=== PATIENT | female | born 1970 | race Caucasian/White ===

== ENCOUNTER → 2018-05-26 | Outpatient (CLI) | payer OTHER | LOC: CARD 12:16 | PROVIDERS: ATTEND Family Medicine | DX: R01.1 Cardiac murmur, unspecified (principal); I07.1 Rheumatic tricuspid insufficiency | CPT/HCPCS: 93306 ==

== ENCOUNTER → 2018-08-06 | Outpatient (CLI) | payer OTHER ==
--- NOTE | 2018-08-06 12:34 | Diagnostic Imaging Report ---
PROCEDURE: MR imaging cervical spine without contrast. TECHNIQUE: Multiplanar, multisequence MR imaging of the cervical spine was performed without contrast. INDICATION: Neck pain which radiates to the right upper extremity with paresthesia. FINDINGS: There is reversal of cervical lordosis. Vertebral body heights are maintained. There is diffuse desiccation of cervical discs. No focal herniated nucleus pulposus is identified. There is mild rightward bulging of the C3-C4 disc resulting in mild right neuroforaminal stenosis. No other significant stenosis is identified. There is normal signal intensity throughout the cervical spinal cord. There is no bone marrow edema to indicate fracture. IMPRESSION: 1. Reversal of cervical lordosis may be secondary to muscle spasm, although clinical correlation is recommended. 2. There is no acute abnormality identified. Rightward protrusion of the C3-C4 disc results in mild right neuroforaminal stenosis. Dictated by: Dictated on workstation # [id number]
== END ==
LOC: RAD 10:54
PROVIDERS: ATTEND Family Medicine
DX: M50.11 Cervical disc disorder with radiculopathy, high cervical region (principal); M99.71 Connective tissue and disc stenosis of intervertebral foramina of cervical region
CPT/HCPCS: 72141

== ENCOUNTER → 2019-01-15 | Outpatient (CLI) | payer OTHER | LOC: CARD 09:39 | PROVIDERS: ATTEND Family Medicine | DX: R07.9 Chest pain, unspecified (principal) | CPT/HCPCS: 93017 ==

== ENCOUNTER → 2019-02-25 | Outpatient (CLI) | payer OTHER ==
[~2019-02-25] VITALS: Ht 157.5 cm; Wt 84.4 kg
[~2019-02-25] MED LIST: CATHETER FLUSH 10 ML SYR IV PRN; REGADENOSON 0.4 MG/5 ML SYR (LEXISCAN) IV ONE
[2019-02-25 13:39] VITALS: BP 140/81
[2019-02-25 13:40] VITALS: BP 143/91
--- NOTE | 2019-02-25 15:56 | STRESS TEST ---
DATE OF SERVICE: 02/25/2019 LEXISCAN MYOVIEW STRESS TEST REPORT REFERRING PHYSICIAN: Dr. Schmidt, [facility]. Baseline heart rate is 62. Baseline blood pressure 140/80. Baseline EKG is sinus rhythm with nondiagnostic changes. In summary, the patient was injected with 10.37 mCi of technetium-99 Myoview and the resting images were obtained. Then, the patient received 0.4 mg of Lexiscan followed by 29.9 mCi of technetium-99 Myoview. Throughout the test, there were no EKG changes. The resting and stress images were reviewed and compared in the short axis, horizontal long axis, and vertical long axis views. Review of the images showed breast attenuation affecting the quality of the images. There is mild decreased uptake involving the anteroapical segment with subtle reversibility, no significant ischemia was noted. SSS is 4, SDS is 4, TID value 1.02. On the gated images, the left ventricle appeared to be normal size with normal contractility. Calculated ejection fraction 78%. CONCLUSION: 1. The patient tolerated Lexiscan well. 2. Breast attenuation affecting the quality of the images with mild decreased uptake at the anteroapical segment with mild reversibility, no significant ischemia or infarction on SPECT images. 3. Normal left ventricular size with normal contractility. Calculated ejection fraction 78%. Job ID: [id number] DocumentID: [id number] Dictated Date: 02/25/2019 15:33:51 Data Migration Consultant Date: 02/25/2019 15:55:44 Dictated By: STEPHANIE MENDEZ MD
== END ==
LOC: CARD 11:36
PROVIDERS: ATTEND Internal Medicine Cardiovascular Disease
DX: R94.39 Abnormal result of other cardiovascular function study (principal); I11.9 Hypertensive heart disease without heart failure; E03.9 Hypothyroidism, unspecified
CPT/HCPCS: 78452; 93017

== ENCOUNTER → 2019-04-30 | Outpatient (CLI) | payer OTHER | LOC: CARD 10:26 | PROVIDERS: ATTEND Internal Medicine Cardiovascular Disease | DX: E03.9 Hypothyroidism, unspecified (principal); I10 Essential (primary) hypertension; R94.39 Abnormal result of other cardiovascular function study | CPT/HCPCS: 93306 ==

== ENCOUNTER 2019-05-13 07:18 | Day surgery (SDC) | payer OTHER ==
[~2019-05-13] VITALS: Ht 157.5 cm; Wt 83.9 kg
[2019-05-13] VITALS (10 sets, daily range): BP systolic 106–174; BP diastolic 71–90
[2019-05-13] MEDS ORDERED: HEParin (CATH LAB) 2,000 ML IV ONE (07:22)
[2019-05-13] MEDS ORDERED: NS IV 1000 ML 1,000 ML ONE (07:22)
[2019-05-13] MEDS ORDERED: LIDOCAINE 1% INJ 20 ML 20 ML VIAL ONE (07:22)
[2019-05-13] MEDS ORDERED: NS IV 1000 ML 1,000 ML IV SCH ×2 (07:25→09:53)
[2019-05-13 07:51] LABS: HEMOGLOBIN 13.1 G/DL (11.5-16.0); MEAN PLATELET VOLUME 8.2 FL (7.4-10.4); RED CELL DISTRIBUTION WIDTH 12.9 % (10.0-14.5); WHITE BLOOD COUNT 6.6 10^3/uL (4.3-11.0)
[2019-05-13] MEDS ORDERED: CYAN-41 PO (08:03)
[2019-05-13] MEDS ORDERED: TIZA4TAB4 PO ×2 (08:03)
[2019-05-13] MEDS ORDERED: TRAZ-190 PO (08:03)
[2019-05-13] MEDS ORDERED: CARI1.5C PO (08:03)
[2019-05-13] MEDS ORDERED: OXCA600T10 PO (08:03)
[2019-05-13] MEDS ORDERED: ESTR1TAB27 PO (08:03)
[2019-05-13] MEDS ORDERED: CITA40TA19 PO (08:03)
[2019-05-13] MEDS ORDERED: MONT10TA21 PO (08:03)
[2019-05-13] MEDS ORDERED: GBPN600T PO (08:03)
[2019-05-13] MEDS ORDERED: LEVO150T PO (08:03)
[2019-05-13] MEDS ORDERED: PRAZ5CAP2 PO (08:03)
[2019-05-13] MEDS ORDERED: HYDR25TA4 PO (08:03)
[2019-05-13] MEDS ORDERED: CHOL200059 PO (08:03)
[2019-05-13 08:06] LABS: INR 0.9 (0.8-1.4)
--- NOTE | 2019-05-13 08:07 | Diagnostic Imaging Report ---
Indication: Preop for coronary angiography, coronary artery disease. Frontal chest obtained at 740 hours a.m. Heart and mediastinal silhouette are normal in appearance. The lungs are clear. There is no pneumothorax or pleural fluid. Impression: Negative chest. Dictated by: Dictated on workstation # [id number]
[2019-05-13] MEDS ORDERED: ACET325T49 PO (08:08)
[2019-05-13] MEDS ORDERED: ASPI-992 PO (08:08)
[2019-05-13 08:11] LABS: ALANINE AMINOTRANSFERASE 17 U/L (0-55); ALBUMIN 4.1 GM/DL (3.2-4.5); ALKALINE PHOSPHATASE 98 U/L (40-136); BILIRUBIN,TOTAL 0.4 MG/DL (0.1-1.0); BUN/CREATININE RATIO 9; CALCIUM 9.1 MG/DL (8.5-10.1); CARBON DIOXIDE 24 MMOL/L (21-32); CHLORIDE 105 MMOL/L (98-107); CHOLESTEROL 231 MG/DL (< 200); CREATININE SERUM 0.74 MG/DL (0.60-1.30); GFR ESTIMATED > 60; GLUCOSE 103 MG/DL (70-105); HDL CHOLESTEROL 67 MG/DL (40-60); POTASSIUM 4.1 MMOL/L (3.6-5.0); SODIUM 138 MMOL/L (135-145); TOTAL PROTEIN 7.3 GM/DL (6.4-8.2); TRIGLYCERIDES 136 MG/DL (<150); VLDL CHOLESTEROL 27 MG/DL (5-40)
--- NOTE | 2019-05-13 08:12 | NUR ---
SPOKE WITH PT (SHE BROUGHT IN HER BOTTLES) TO COMPLETE THE MED REC. PT WAS ABLE TO VERIFY ALL THE MEDS SHE IS CURRENTLY TAKING AND WAS ABLE TO TELL ME HOW SHE TAKES THEM ITAALCIDES IS A SAMPLE [facility] TIZANIDINE 4MG: PT TAKE 1/4 TAB (1MG) IN AM AND AT NOON, THEN TAKES 1 TAB (4MG) AT BEDTIME GABAPENTIN 600MG: PT TAKES 1& 1/2 TABS (900MG) BID OTC MEDS: VITAMIN D3 2000UI: 3 CAPS AT NOON VITAMIN B12 1,000: 1 TAB AT NOON EXCEDRIN: 2 TABS Q 8 H PRN ACETAMINOPHEN 325M TABS Q 8 H PRN
[2019-05-13] MEDS ORDERED: fentaNYL INJECTION 100 MCG/2 ML AMP ONE (08:54)
[2019-05-13] MEDS ORDERED: MIDAZOLAM 5 MG/5 ML (VERSED) VIAL ONE (08:54)
[2019-05-13] MEDS ORDERED: NITRO DRIP 25000 MCG/D5W 250 ML IV ONE (08:55)
[2019-05-13] MEDS ORDERED: VERAPAMIL 5 MG/2 ML (CALAN) VIAL IV ONE (08:55)
[2019-05-13] MEDS ORDERED: HEParin 1000 UNIT/ML (10ML VIAL) FOR BOLUS ONE (08:55)
--- NOTE | 2019-05-13 09:22 | Cardiac Procedure Note-CS/ASA ---
Pre-Procedure Note Pre-Op Procedure Note H&P Reviewed The H&P was reviewed, patient examined and no changes noted. Date H&P Reviewed: May 13, 2019 Time H&P Reviewed: 09:21 Conscious Sedation Pre-Proced Time 09:21 ASA Score 3 For ASA 3 and 4: Consider anesthesia and medical clearance. Also, for patients with a history of failed moderate sedation consider anesthesia. Airway Lungs Heart ASA score ASA 1: a normal healthy patient ASA 2: a patient with a mild systemic disease (mid diabetes, controlled hypertension, obesity X ASA 3: a patient with a severe systemic disease that limits activity (angina, COPD, prior Myocardial infarction) ASA 4: a patient with an incapacitating disease that is a constant threat to life (CHF, renal failure) ASA 5: a moribund patient not expected to survive 24 hrs. (ruptured aneurysm) ASA 6: a declared brain- patient whose organs are being harvested. For emergent operations, add the letter E after the classification Mallampati Classification Grade 3 Sedation Plan Analgesia, Amnesia, Plan communicated to team members, Discussed options with patient/fam, Discussed risks with patient/fam The patient is an appropriate candidate to undergo the planned procedure, sedation, and anesthesia. The patient immediately re-assessed prior to indication. STEPHANIE MENDEZ MD May 13, 2019 09:22
--- NOTE | 2019-05-13 09:53 | Cardiac Cath Report ---
Cardiac Cath Report Physician (s)/Slice Plug Cutter Operator Helper (s) Physician STEPHANIE MENDEZ MD Pre-Procedure Diagnosis Pre-Procedure Diagnosis: chest pain, coronary artery disease Post-Procedure Note Procedure Start Date: May 13, 2019 Name of Procedure: coronary angiogram Aortic arch angiogram Findings/Procedure Note PROCEDURE NOTE: 48 years old lady with history of hypertension, has been having recurrent chest pain, had abnormal stress test, scheduled for cardiac catheterization possible PTCA. After explaining the procedure to the patient, all pros and cons were explained, all questions were answered. The patient signed the consent and then she was placed on the cardiac catheterization laboratory. Groin was prepped SL fashion local anesthesia was used. Sheath placed in the Right radial artery, [place] catheter was used, I was unable to cross the valve, did not get adequate pressure after crossing. Pullback without pressure measurement. Intubated the left coronary angiogram was done, then turned and intubated the right coronary artery and angiogram was done. Attempted multiple times to cross the valve without success subsequent apple the catheter back to the arch and did aortic arch angiogram.. At the end of the procedure the sheath was removed. vascular band was used FINDINGS: Hemodynamics LV no LV pressure measurement Aorta 106/71 mean of 77 ANATOMY: Left Main is free of obstructive disease Left Anterior Descending is tortuous with mild disease nonobstructive disease Left Circumflex is nondominant artery with nonobstructive disease Right Coronory Artery is dominant artery with no obstructive disease Aortic arteriogram showed normal aortic arch, no dissection or aneurysm, normal origin of the right innominate artery, left carotid and left subclavian artery. CONCLUSION: 1. Dominant right carotid system with slightly tortuous LAD with no significant obstructive disease in the coronary system 2. Normal aortic arch and great vessels of the neck DISCUSSION AND RECOMMENDATION: medical therapy is recommended no intervention is needed Anesthesia Type: Conscious Sedation Estimated blood loss (mL): 5 ml Contrast Amount: 35 ml Total Radiation Dose: 202 mGy Post-Procedure Diagnosis Post-operative diagnosis: Chest pain Coronary artery disease Hypertension Hyperlipidemia STEPHANIE MENDEZ MD May 13, 2019 09:53
[2019-05-13] MEDS ORDERED: ATOR10TA PO (09:55)
--- NOTE | 2019-05-13 09:56 | Discharge Inst-Post CATH ---
Discharge Inst-CATH/EP Problems Reviewed?: Yes Post Cardiac Cath/EP D/C Inst Follow Up/Plan Appointment with Dr. Montanez's office in 2-4 weeks <b>CARDIAC CATH/EP PROCEDURE DISCHARGE INSTRUCTIONS</b> ACTIVITY * Go Home directly and rest. * Limit activity of the leg (or wrist if it was used) for 7 days including aerobics, swimming, jogging, bicycling, etc. * Restrict stair-climbing for 7 days if possible, if not, climb up with your non-cath leg, then bring together on the same step. * Avoid lifting, pushing, pulling or excessive movement of the affected extremity for 7 days. * Customary sexual activity may be resumed after 2 days-use caution not to use a position that strains or causes pain to the affected extremity. * No driving for 24 hours. * NO SMOKING. * Avoid straining for bowel movements for 7 days. * Gentle walking on level ground is allowed. * Returning to work will depend on the type of procedure and the results. Your doctor will discuss this with you. CALL YOUR DOCTOR FOR ANY OF THE FOLLOWING: *If bleeding from the puncture site occurs- Apply gentle pressure to site with clean cloth and call your doctor or EMS. * If a knot or lump forms under the skin, increases in size, or causes pain. * If bruising appears to be worsening or moving further down your leg instead of disappearing. * Temperature above 101 F. CARE OF YOUR GROIN INCISION; * Bruising or purple discoloration of the skin near the puncture site is common. * You may shower only, no bathtub bathing for 5 days. Be careful to avoid slipping as your leg may feel stiff. * If a closure device was used on your femoral artery, please see the attached guide regarding care of the device and your leg. * Leave dressing on FOR 24 hours. CARE OF YOUR WRIST INCISION; * Bruising or purple discoloration of the skin near the puncture site is common. * You may shower. * DO NOT submerge wrist. * Leave dressing on FOR 24 hours. STEPHANIE MONTANEZ MD May 13, 2019 09:56
--- NOTE | 2019-05-13 12:25 | NUR ---
ONLY 12CC REMOVED FROM VASC BAND
== END 2019-05-13 12:50 | disposition home or self-care (01) ==
LOC: CATH 07:18 → SDC 10:09 → CATH 12:50
PROVIDERS: ATTEND Internal Medicine Cardiovascular Disease
DX: R07.9 Chest pain, unspecified (principal); I25.10 Atherosclerotic heart disease of native coronary artery without angina pectoris; I11.9 Hypertensive heart disease without heart failure; I65.23 Occlusion and stenosis of bilateral carotid arteries; E78.5 Hyperlipidemia, unspecified; F31.9 Bipolar disorder, unspecified; E03.9 Hypothyroidism, unspecified; S19.9XXA Unspecified injury of neck, initial encounter; Z79.899 Other long term (current) drug therapy; Z91.040 Latex allergy status; Z87.891 Personal history of nicotine dependence; Z83.3 Family history of diabetes mellitus; Z82.49 Family history of ischemic heart disease and other diseases of the circulatory system; Z82.3 Family history of stroke
CPT/HCPCS: 36221; 36415; 71045; 80053; 80061; 85027; 85610; 85730; 87081; 93454

== ENCOUNTER → 2020-09-27 | Outpatient (CLI) | payer OTHER, MEDICAID ==
[~2020-09-27] MED LIST changes: +ACET325T49 PO; +ASPI-992 PO; +ATOR10TA PO; +CARI1.5C PO; -CATHETER FLUSH 10 ML SYR IV PRN; +CHOL200059 PO; +CITA40TA19 PO; +CYAN-41 PO; +ESTR1TAB27 PO; +GBPN600T PO; +HYDR25TA4 PO; +LEVO150T PO; +MONT10TA21 PO; +OXCA600T10 PO; +PRAZ5CAP2 PO; -REGADENOSON 0.4 MG/5 ML SYR (LEXISCAN) IV ONE; +TIZA4TAB4 PO; +TRAZ-227 PO
--- NOTE | 2020-09-27 12:55 | Diagnostic Imaging Report ---
PROCEDURE: MRI lumbar spine. TECHNIQUE: Multiplanar, multisequence MRI of the lumbar spine was performed without contrast. INDICATION: Chronic back pain. While I have no previous for direct comparison, the study interpreted in correlation with abdominal pelvic CT performed June 2015. FINDINGS: There are chronic bilateral L5 spondylolysis defects with grade 1-2 anterolisthesis L5 on S1 of about 9 mm. There is edematous Modic type I degenerative changes across the L5-S1 articular endplates of advanced disc stature loss, desiccation and bulge. The findings result in mild degree of bi-foraminal stenosis. There is elongation of the AP diameter of the canal along to the listhesis without significant canal stenosis. There is no impingement upon the lateral recesses. Remaining lumbar discs maintain normal stature and have normal height and were nondisplaced with normal signal intensity. The canal neural foramina and lateral recesses otherwise widely patent. The pedicles and pars intact. IMPRESSION: Likely increased anterolisthesis L5 on S1 with edematous Modic type I degenerative changes across the L5-S1 articular endplates in this patient with chronic L5 spondylolysis defects bilaterally at L5. Only mild bi-foraminal stenosis present at this level without significant canal encroachment. The remaining levels were normal. Dictated by: Dictated on workstation # [id number]
== END ==
LOC: RAD 09:30
PROVIDERS: ATTEND Family Medicine
DX: M47.816 Spondylosis without myelopathy or radiculopathy, lumbar region (principal); M47.817 Spondylosis without myelopathy or radiculopathy, lumbosacral region; M48.061 Spinal stenosis, lumbar region without neurogenic claudication; M48.07 Spinal stenosis, lumbosacral region
CPT/HCPCS: 72148

== ENCOUNTER → 2020-12-28 | Outpatient (CLI) | payer OTHER, MEDICAID ==
[~2020-12-28] MED LIST changes: +BARIUM for suspension 96% w/w (Vanilla Silq Medium Density) PO ONE; +BARIUM for suspension 98% w/w (Vanilla Silq High Density) PO ONE
--- NOTE | 2020-12-28 14:55 | Diagnostic Imaging Report ---
Indication: Pregastric sleeve workup. Patient ingested effervescent crystals as well as thin and thick barium and imaging of the area esophagus, stomach and proximal small bowel was performed. 53 seconds of fluoroscopic time was utilized. Preliminary radiograph demonstrates a calcific density overlying the medial aspect of the left renal shadow, suggestive of a large renal calculus measuring approximately 18 mm in size. This may be located in the renal pelvis. No other definite radiopaque urinary tract calculi are seen. Esophagus has a smooth contour. No definite mass or stricture is identified. There was mild gastroesophageal reflux demonstrated. There is a very small sliding-type hiatal hernia. Stomach is normal in configuration. No mass or ulceration is seen. Duodenal bulb is without deformity. Proximal small bowel loops are unremarkable. IMPRESSION: 1. Mild gastroesophageal reflux and small sliding-type hiatal hernia. 2. Probable left renal pelvic calculus. Dictated by: Dictated on workstation # [id number]
== END ==
LOC: RAD 11:00
PROVIDERS: ATTEND Surgery
DX: K21.9 Gastro-esophageal reflux disease without esophagitis (principal); K44.9 Diaphragmatic hernia without obstruction or gangrene; E66.01 Morbid (severe) obesity due to excess calories
CPT/HCPCS: 74246

== ENCOUNTER → 2021-10-16 | Outpatient (CLI) | payer OTHER, MEDICAID ==
[~2021-10-16] MED LIST changes: -BARIUM for suspension 96% w/w (Vanilla Silq Medium Density) PO ONE; -BARIUM for suspension 98% w/w (Vanilla Silq High Density) PO ONE; +TIZA-186 PO; -TIZA4TAB4 PO
--- NOTE | 2021-10-16 14:21 | Diagnostic Imaging Report ---
PROCEDURE: MR imaging of the brain without contrast. TECHNIQUE: Multiplanar, multisequence MR imaging of the brain was performed without contrast. INDICATION: Memory deficit COMPARISON: None FINDINGS: The ventricles and the cortical sulci age-appropriate. There is no midline shift or mass effect identified. There is no acute infarction. No intraparenchymal or extraaxial hemorrhage or fluid collection is identified. There is no focal parenchymal abnormality seen. There is no focal mass seen. The midline craniocervical anatomy is unremarkable. The major expected intracranial flow voids are seen. There are no focal calvarial lesions. The visualized paranasal sinuses are unremarkable. The mastoid air cells are clear. IMPRESSION: 1. No acute intracranial abnormalities. No acute infarction, acute intra-axial hemorrhage or focal intra-axial mass. Dictated by: Dictated on workstation # [id number]
== END ==
LOC: RAD 14:00
PROVIDERS: ATTEND Family Medicine
DX: R41.3 Other amnesia (principal); R29.818 Other symptoms and signs involving the nervous system; R27.8 Other lack of coordination
CPT/HCPCS: 70551

== ENCOUNTER → 2021-11-09 | Outpatient (CLI) | payer MEDICARE, MEDICAID ==
[~2021-11-09] MED LIST changes: +ALBU0.63 IH; +ALBU18HF2 INH; +BENZ100C18 PO; +BUDE10.22 IH; +FURO20TA4 PO; +LEVO125C4 PO; +MV-M1TAB20 PO; +OXCA600T3 PO; +POTA10TA37 PO
--- NOTE | 2021-11-09 13:59 | Diagnostic Imaging Report ---
INDICATION: History of renal calculi. COMPARISON: 06/10/2015. FINDINGS: Two frontal supine radiographic views of the abdomen were obtained. Bulky calcification is again identified projecting over the left renal pelvis and measures 2.1 x 1.5 cm. Smaller extraosseous calculi are also seen projecting over the remainder of the bilateral renal shadows. No unexpected radiopaque foreign bodies are seen. Small bowel loops are nondistended. Moderate air and stool are seen scattered throughout the colon. There is no large collection of free intraperitoneal air. Osseous structures show no gross acute abnormalities. IMPRESSION: 1. Bilateral renal calculi, left greater than right. 2. Nonobstructed small bowel gas pattern. 3. Moderate colonic air and stool. Please correlate for constipation. Dictated by: Dictated on workstation # [id number]
== END ==
LOC: RAD 12:31
PROVIDERS: ATTEND Urology
DX: N20.0 Calculus of kidney (principal)
CPT/HCPCS: 74018

== ENCOUNTER 2021-11-10 05:36 | Outpatient (CLI) | payer MEDICARE, MEDICAID ==
[~2021-11-10] VITALS: Ht 157.5 cm; Wt 88.6 kg
[~2021-11-10 05:36] MED LIST changes: -ALBU0.63 IH; -ALBU18HF2 INH; -BENZ100C18 PO; -BUDE10.22 IH; -FURO20TA4 PO; -LEVO125C4 PO; -MV-M1TAB20 PO; -OXCA600T3 PO; -POTA10TA37 PO
[2021-11-10] MEDS ORDERED: POTA10TA37 PO (13:30)
[2021-11-10] MEDS ORDERED: ALBU0.63 IH (13:30)
[2021-11-10] MEDS ORDERED: LEVO125C4 PO (13:30)
[2021-11-10] MEDS ORDERED: BENZ100C18 PO (13:30)
[2021-11-10] MEDS ORDERED: BUDE10.22 IH (13:30)
[2021-11-10] MEDS ORDERED: MV-M1TAB20 PO (13:30)
[2021-11-10] MEDS ORDERED: OXCA600T3 PO (13:30)
[2021-11-10] MEDS ORDERED: FURO20TA4 PO (13:30)
[2021-11-10] MEDS ORDERED: ALBU18HF2 INH (13:30)
== END 2021-11-10 13:37 | disposition home or self-care (01) ==
LOC: PREOP 05:36
PROVIDERS: ATTEND Urology
DX: Z01.818 Encounter for other preprocedural examination (principal)

== ENCOUNTER 2021-11-14 08:32 | Day surgery (SDC) | payer MEDICARE, MEDICAID ==
[2021-11-14] VITALS (11 sets, daily range): BP systolic 135–152; BP diastolic 79–91
[~2021-11-14] VITALS: Ht 157.5 cm; Wt 88.6 kg
[~2021-11-14 08:32] MED LIST changes: +ALBU0.63 IH; +ALBU18HF2 INH; +BENZ100C18 PO; +BUDE10.22 IH; +FURO20TA4 PO; +LEVO125C4 PO; +MV-M1TAB20 PO; +OXCA600T3 PO; +POTA10TA37 PO
[2021-11-14] MEDS ORDERED: cefTRIAXone 1 GM PRE-MIX 50 ML IV ONE (08:45)
[2021-11-14] MEDS: LACTATED RINGERS 1,000 ML IV PRN ×2 (09:00→13:00)
--- NOTE | 2021-11-14 09:29 | Diagnostic Imaging Report ---
Clinical Indication: ESWL. Patient with kidney stones. Exam: KUB x-ray. Comparison: KUB x-ray dated 11/09/2021. Findings: Again noted 2.1 cm x 1.5 cm calcification overlying the expected region of the left renal pelvis/shadow. Stable amorphous calcification seen overlying the inferior shadow of left kidney. There appear to be small calcifications overlying the right renal shadow. Phleboliths again noted in the pelvis. Nonobstructive bowel gas pattern. IMPRESSION: Impression: Stable x-ray of the abdomen with bilateral renal stones. Dictated by: Dictated on workstation # [id number]
--- NOTE | 2021-11-14 09:39 | Progress Note-Pre Operative ---
Pre-Operative Progress Note H&P Reviewed The H&P was reviewed, patient examined and no changes noted. Date Seen by Provider: Nov 14, 2021 Time Seen by Provider: 09:39 Date H&P Reviewed: Nov 14, 2021 Time H&P Reviewed: 09:39 Pre-Operative Diagnosis: LT RENAL STONES MARY HENRY MD Nov 14, 2021 09:39
--- NOTE | 2021-11-14 11:44 | Progress Note-Post Operative ---
Post-Operative Progess Note Surgeon (s)/Associate Director Of Biostatistics (s) Surgeon MARY HENRY MD Associate Director Of Biostatistics: NONE Pre-Operative Diagnosis LT RENAL STONES Post-Operative Diagnosis SAME Procedure & Operative Findings Date of Procedure 11/14/21 Procedure Performed/Findings LT ESWL Anesthesia Type GENERAL Estimated Blood Loss Estimated blood loss (mL): NONE Specimens/Packing Specimens Removed NONE Packing: NONE MARY HENRY MD Nov 14, 2021 11:44
--- NOTE | 2021-11-14 11:46 | Discharge Inst-Urology ---
Discharge Inst-Urology Reconcile Patient Problems Problems Reviewed?: Yes Final Diagnosis LT RENAL STONES Patient Instructions/Follow Up Plan/Assessment/Instructions Please make appointment to been seen in office Monday 11/27, KUB prior to it. KUB on way home Post ESWL instructions Increase oral fluids for 48 hours and then as needed. Diet and Activity as tolerated. If questions or concerns contact your physician Or seek help at emergency department. MARY HENRY MD Nov 14, 2021 11:46
[2021-11-14] MEDS ORDERED: FUROSEMIDE 40 MG/4 ML INJ (LASIX) ONE (12:20)
[2021-11-14] MEDS ORDERED: ONDANSETRON 4 MG/2 ML (SDV) Z0FRAN ONE (12:21)
[2021-11-14] MEDS ORDERED: fentaNYL INJ 100 MCG/2 ML AMP ONE (12:21)
[2021-11-14] MEDS ORDERED: MIDAZOLAM 2 MG/2 ML (VERSED) VIAL ONE (12:21)
[2021-11-14] MEDS ORDERED: SEVOFLURANE (ULTANE) 15 ML INHAL SOLN ONE (12:21)
[2021-11-14] MEDS ORDERED: LIDOCAINE PF 2% 5 ML (XYLOCAINE) VIAL ONE (12:21)
[2021-11-14] MEDS ORDERED: proPOfol 200 MG/20 ML (DIPRIVAN) VIAL IV ONE (12:21)
[2021-11-14] MEDS ORDERED: ROCURONIUM 10 MG/ML 5 ML SYRINGE IV ONE (12:21)
[2021-11-14] MEDS ORDERED: KETOROLAC 30 MG/ML VIAL ONE (12:23)
[2021-11-14] MEDS ORDERED: HYDROmorphone 2 MG/ML VIAL (DILAUDID) IV ONE (13:15)
[2021-11-14] MEDS ORDERED: ONDANSETRON 4 MG/2 ML (SDV) Z0FRAN IVP PRN (13:15)
[2021-11-14] MEDS ORDERED: KETO10TA PO (13:38)
[2021-11-14] MEDS ORDERED: NITR-65 PO (13:38)
[2021-11-14] MEDS ORDERED: TMSL.4C PO (13:38)
--- NOTE | 2021-11-14 15:30 | Diagnostic Imaging Report ---
INDICATION: Postop FINDINGS: Single view of the abdomen demonstrates persistent but decreased calcifications in the left kidney. There is no unexpected radiopaque foreign body. The bowel gas pattern is normal. IMPRESSION: No unexpected radiopaque foreign body. Dictated by: Dictated on workstation # [id number]
--- NOTE | 2021-11-14 18:29 | Anesthesia-General Post-Op ---
General Patient Condition Mental Status/LOC: Same as Preop Cardiovascular: Satisfactory Nausea/Vomiting: Absent Respiratory: Satisfactory Pain: Controlled Complications: Absent Post Op Complications Complications None Follow Up Care/Instructions Patient Instructions None needed. Anesthesia/Patient Condition Patient Condition Patient is doing well, no complaints, stable vital signs, no apparent adverse anesthesia problems. No complications reported per nursing. D/C home per [facility] Criteria: Yes MCKAYLA GOMEZ CRNA Nov 14, 2021 16:20
--- NOTE | 2021-11-14 18:30 | OPERATIVE REPORT ---
DATE OF SERVICE: 11/14/2021 PREOPERATIVE DIAGNOSIS: Left renal stones. POSTOPERATIVE DIAGNOSIS: Left renal stones. OPERATION PERFORMED: Left ESWL. SURGEON: Dionisio Henry MD ANESTHESIA: General. COMPLICATIONS: None. DESCRIPTION OF PROCEDURE: Under satisfactory general anesthesia, the patient in supine position on the ESWL table, the left renal stone was localized. Shocks were delivered at kV of 6. Total of 2500 shocks fragmented the stone very well. The patient received 40 mg of Lasix and 30 mg of Toradol IV at the end of the procedure. She tolerated the procedure and anesthesia well and was sent to recovery room in stable condition. Job ID: [id number] DocumentID: [id number] Dictated Date: 11/14/2021 12:56:49 Financial Institution Vice President Date: 11/14/2021 18:30:05 Dictated By: DIONISIO HENRY MD
== END 2021-11-14 15:19 | disposition home or self-care (01) ==
LOC: SDC 08:32
PROVIDERS: ATTEND Urology
DX: N20.0 Calculus of kidney (principal); Z87.891 Personal history of nicotine dependence
CPT/HCPCS: 74018; 87081

== ENCOUNTER → 2021-11-27 | Outpatient (CLI) | payer MEDICARE, MEDICAID ==
[~2021-11-27] MED LIST changes: +KETO10TA PO; +NITR-65 PO; +TMSL.4C PO
--- NOTE | 2021-11-27 16:40 | Diagnostic Imaging Report ---
HISTORY: Kidney stones, history of lithotripsy. COMPARISON: 11/14/2021. TECHNIQUE: Frontal views of the abdomen. FINDINGS: There may be faint irregular calcifications in the inferior pole of the left kidney. The large midpole left renal stone is no longer evident radiographically. No calculi are seen in the region of the right kidney. There are stable phleboliths in the pelvis. No bowel distention or free air is seen. IMPRESSION: Irregular small calculi in the inferior left kidney. The prominent calculus in the left mid kidney is no longer evident. Dictated by: Dictated on workstation # [id number]
== END ==
LOC: RAD 13:29
PROVIDERS: ATTEND Urology
DX: N20.0 Calculus of kidney (principal)
CPT/HCPCS: 74018

== ENCOUNTER → 2022-02-26 | Outpatient (CLI) | payer MEDICARE, MEDICAID ==
--- NOTE | 2022-02-26 16:40 | Diagnostic Imaging Report ---
Indication: Kidney stones, followup. Time of Exam: 2:45 PM Correlation is made with prior radiograph from 11/27/2021. Small calcific densities overlie the renal shadows bilaterally. Small calcification overlies the upper pole on the left and mid to lower pole in the right. The previously noted irregular calcification overlying the lower pole left kidney on exam in November is not appreciated on today's study. No definite ureteral calculi are seen. IMPRESSION: Small bilateral probable renal calculi. No definite ureteral calculi are detected. Dictated by: Dictated on workstation # [id number]
== END ==
LOC: RAD 14:27
PROVIDERS: ATTEND Urology
DX: N20.0 Calculus of kidney (principal)
CPT/HCPCS: 74018

== ENCOUNTER → 2022-08-27 | Outpatient (CLI) | payer MEDICARE, MEDICAID ==
[~2022-08-27] MED LIST changes: +POTA-177 PO; -POTA10TA37 PO
--- NOTE | 2022-08-27 16:08 | Diagnostic Imaging Report ---
INDICATION: History of renal calculi. COMPARISON: 02/26/2022 FINDINGS: Single frontal radiographic view of the chest was obtained. Small extraosseous calcifications are again identified projecting over the superior pole of the left renal shadow and inferior pole on the right. Several small pelvic calcifications are also noted and are stable. No unexpected radiopaque foreign bodies are seen. Small bowel loops are nondistended. There is no large collection of free intraperitoneal air. Osseous structures show no gross acute abnormalities. IMPRESSION: 1. Nonobstructive small bowel gas pattern. 2. Probable bilateral nephrolithiasis. Dictated by: Dictated on workstation # [id number]
== END ==
LOC: RAD 14:13
PROVIDERS: ATTEND Urology
DX: Z87.442 Personal history of urinary calculi (principal)
CPT/HCPCS: 74018

== ENCOUNTER → 2022-09-11 | Outpatient (CLI) | payer MEDICARE, MEDICAID ==
--- NOTE | 2022-09-11 13:56 | Diagnostic Imaging Report ---
PROCEDURE: US Gallbladder. TECHNIQUE: Multiple real-time grayscale images were obtained over the right upper quadrant in various projections. INDICATION: Right upper quadrant pain. Liver is enlarged approximately 21 cm. There is increased echogenicity throughout the liver consistent with hepatic steatosis. No discrete liver mass is detected. The portal vein is patent and shows normal direction of flow. Gallbladder does contain some sludge. No gallstones or wall thickening is seen. There is no biliary duct dilatation. Pancreas is unremarkable. Right kidneys unremarkable. Aorta and IVC were obscured. There is no ascites. IMPRESSION: 1. Hepatomegaly and hepatic steatosis. 2. Gallbladder sludge. No definite cholelithiasis or evidence of acute cholecystitis is identified. Dictated by: Dictated on workstation # [id number]
== END ==
LOC: RAD FS 10:23
PROVIDERS: ATTEND Surgery
DX: K76.0 Fatty (change of) liver, not elsewhere classified (principal); K82.8 Other specified diseases of gallbladder; R16.0 Hepatomegaly, not elsewhere classified
CPT/HCPCS: 76705

== ENCOUNTER → 2022-09-26 | Outpatient (CLI) | payer MEDICARE, MEDICAID ==
[~2022-09-26] VITALS: Ht 157 cm; Wt 92.0 kg
== END | disposition home or self-care (01) ==
LOC: PREOP 05:30
PROVIDERS: ATTEND Surgery
DX: Z01.818 Encounter for other preprocedural examination (principal)

== ENCOUNTER 2022-10-10 07:20 | Day surgery (SDC) | payer MEDICARE, MEDICAID ==
[~2022-10-10] VITALS: Ht 157 cm; Wt 92.0 kg
[2022-10-10] VITALS (11 sets, daily range): BP systolic 144–168; BP diastolic 78–97
[2022-10-10] MEDS ORDERED: GLYCOPYRROLATE 0.2 MG/ML (ROBINUL) 2 ML VIAL ONE (07:47)
[2022-10-10] MEDS ORDERED: NEOSTIGMINE (BLOXIVERZ ) 1 MG/1ML 10 ML VIAL ONE (07:47)
[2022-10-10] MEDS ORDERED: ONDANSETRON 4 MG/2 ML (SDV) Z0FRAN ONE (07:47)
[2022-10-10] MEDS ORDERED: fentaNYL INJ 100 MCG/2 ML AMP ONE (07:47)
[2022-10-10] MEDS ORDERED: MIDAZOLAM 2 MG/2 ML (VERSED) VIAL ONE (07:47)
[2022-10-10] MEDS ORDERED: proPOfol 200 MG/20 ML (DIPRIVAN) VIAL IV ONE (07:47)
[2022-10-10] MEDS ORDERED: LIDOCAINE PF 2% 5 ML (XYLOCAINE) VIAL ONE (07:47)
[2022-10-10] MEDS ORDERED: BUP/EPI 0.5% 1:200,000 (SENSORCAINE) 30 ML VIAL ONE (07:51)
[2022-10-10] MEDS ORDERED: BUP/EPI 0.5% 1:200,000 (SENSORCAINE) 30 ML VIAL INJ ONE (08:00)
[2022-10-10] MEDS ORDERED: ceFAZolin INJECTION 2,000 MG in NS (IVPB) 50 ML IV ONE (08:00)
[2022-10-10] MEDS: LACTATED RINGERS 1,000 ML IV PRN ×2 (08:19→10:56)
--- NOTE | 2022-10-10 08:55 | Progress Note-Pre Operative ---
Pre-Operative Progress Note Date of Available H&P: Sep 20, 2022 Date H&P Reviewed: Oct 10, 2022 Time H&P Reviewed: 08:45 History & Physical: H&P Reviewed, Patient Examed, No changes noted Pre-Operative Diagnosis: Griselda/griselda JAYLA DAMON DO Oct 10, 2022 08:55
[2022-10-10] MEDS ORDERED: ONDANSETRON 4 MG/2 ML (SDV) Z0FRAN IVP PRN (09:00)
[2022-10-10] MEDS ORDERED: morphine INJ 10 MG/ML 1ML (SYR OR VIAL) IVP ONE (09:00)
[2022-10-10] MEDS ORDERED: HYDROmorphone 2 MG/ML VIAL (DILAUDID) IV ONE (09:00)
[2022-10-10] MEDS ORDERED: diphenhydrAMINE 50 MG/ML INJ (BENADRYL) ONE (09:06)
[2022-10-10] MEDS ORDERED: FAMOTIDINE 20MG/2ML IV (PEPCID) ONE (09:07)
[2022-10-10] MEDS ORDERED: IOHEXOL 300 MG/ML 100 ML (OMNIPAQUE 300) VIAL INJ ONE (09:38)
--- NOTE | 2022-10-10 09:49 | Progress Note-Post Operative ---
Post-Operative Progess Note Surgeon (s)/Diabetic Educator (s) Surgeon JAYLA DAMON DO Diabetic Educator: Ness Pre-Operative Diagnosis Carmella/carmella Post-Operative Diagnosis Same with adhesions Procedure & Operative Findings Date of Procedure 10/10/22 Procedure Performed/Findings PROCEDURE: Laparoscopic cholecystectomy with intraoperative cholangiogram. COMPLICATIONS: None. PROCEDURE: The patient was taken to the operating suite and was prepped and draped in sterile fashion. A surgical pause was performed. Just superior to the umbilicus, a 12 mm incision was made. Dissection was taken down to the fascia, which was then scored and grasped with a Zainab and the abdomen was then entered. A 0 Vicryl suture was placed in a abiphf-xw-avclw fashion and a Quezada trocar was placed and secured. Pneumoperitoneum was achieved. A 5mm trochar placed in the subxyphoid and 2 in the right upper quadrant. The gallbladder was then visualized and there were adhesions to it; this usually indicates previous gallbladder attacks. Gallbladder was then grasped at the fundus and elevated in the superior direction. The adhesions were taken down with the bovie cautery. Grasped at Fernandez's pouch and pulled in the infero-lateral direction. The cystic artery was in front and therefore dissected out first, clips placed inferior and superior and cut with scissors. Then dissected out the cystic duct. Clip was placed on the distal portion of the cystic duct which was then partially transected. An arrow catheter was inserted into the duct. The cholangiogram was then performed. No filling defects and contrast made its way into the duodenum. Catheter removed. Clips were placed on proximal portion of the cystic duct and then the duct was then transected. Hook cautery was used to dissect the gallbladder from the gallbladder fossa achieving hemostasis. The gallbladder was placed in an Endobag and removed through the 12 mm trocar site. The abdomen was then reinspected. There was some scant oozing from the bed of the liver and a surgicell was placed. Copious amounts of irrigation were used to irrigate the abdomen and there were no signs of active bleeding. Hemostasis had been achieved. The 12 mm fascial defect was then closed with 0 Vicryl suture that had been placed in a fnmrzo-[id number] fashion. The abdomen was then desufflated, the trocars were removed. The abdomen was then washed and dried. The skin was then closed using 4-0 Monocryl in a subcuticular fashion. The abdomen was washed and dried and Skin Affix was place over incisions. Patient tolerated the procedure well without any complications and was taken to the recovery room in stable condition. Dr. Arzola assisted on this case helping to make incisions, close incisions, identify anatomy and hold anatomy out of the way. Anesthesia Type GET Estimated Blood Loss Estimated blood loss (mL): less than 5ml Specimens/Packing Specimens Removed GB and contents JAYLA DAMON DO Oct 10, 2022 09:49
[2022-10-10] MEDS ORDERED: ACHD5005 PO (09:50)
--- NOTE | 2022-10-10 09:52 | Discharge Inst-Surgical ---
Discharge Inst-Surgical Depart Medication/Instructions New, Converted or Re-Newed RX: Transmitted to Pharmacy Patient Instructions Follow up Appt: Make appointment for 1 week. [phone] Instructions: No lifting greater than 20 pounds. No strenuous activity. May shower in 24 hours, no tub bath or soaking. Use incentive spirometer at home as directed. No Smoking Skin/Wound Care: May remove bandages in am. You need to leave the Dermabond on incision it will fall off on it's own. Symptoms to Report: Appetite Changes, Extremity Discoloration, Numbness/Tingling, Swelling Increased, Bleeding Excessive, Eyesight Changes, Pain Increased, Urine Color Change, Constipation(Persistent), Fever over 101 degree F, Pain/Pressure in chest, Urinating Difficulty, Cough Up/Vomit Blood, Heart Beat Irreg/Pounding, Pain/Pressure in jaw, Cramps in feet or legs, Lightheadedness, Pain/Pressure in shoulder, Diarrhea(Persistent), Memory Changes Suddenly, Questions/Concerns, Weight gain consecutive days, Dizziness/Fainting, Nausea/Vomiting, Shortness of Breath, Weight gain over 2 pounds If questions or concerns contact your physician Or seek help at emergency department. Activity Activity as Tolerated: Yes Activity Instructions: Avoid Stress to Incision Driving Instructions: No Driving/Refer to Dr. Victoria Discharge Diet: Avoid Fatty Foods, Low Fat/Low Cholesterol Diet After 24 Hours: Clear Liquid if Nauseous If Any Problems/Questions/Issu: Contact Your Physician, Go to Emergency Room Skin/Wound Care Infection Signs and Symptoms: Increased Redness, Foul Odor of Wound, Increased Drainage, Skin Itchy or Has a Rash, Increased Swelling, Temperature Above 101 F Wound Care Comment: heating pad to shoulder or neck tonight for pain Bathing Instructions: Shower Stitches/[place]/Dermabond Dis: Dermabond Ice Pack: Ice On and Off Site JAYLA DAMON DO Oct 10, 2022 09:52
[2022-10-10] MEDS ORDERED: RT-ALBUTEROL SULF 2.5 MG/3 ML PRE-MIX VIAL ONE (10:13)
[2022-10-10] MEDS ORDERED: SEVOFLURANE (ULTANE) 15 ML INHAL SOLN ONE (10:18)
[2022-10-10] MEDS ORDERED: ROCURONIUM 50 MG/5 ML (ZEMURON) VIAL IV ONE (10:18)
[2022-10-10] MEDS ORDERED: RT-ALBUTEROL SULF 2.5 MG/3 ML PRE-MIX VIAL INH ONE (10:45)
[2022-10-10] MEDS ORDERED: HYDROcodone/APAP 5 MG/325 MG (LORTAB) TAB ONE (11:25)
[2022-10-10] MEDS ORDERED: HYDROcodone/APAP 5 MG/325 MG (LORTAB) TAB PO ONE (11:30)
--- NOTE | 2022-10-10 11:54 | Anesthesia-General Post-Op ---
General Patient Condition Mental Status/LOC: Same as Preop Cardiovascular: Satisfactory Nausea/Vomiting: Absent Respiratory: Satisfactory Pain: Controlled Complications: Absent Post Op Complications Complications None Follow Up Care/Instructions Patient Instructions None needed. Anesthesia/Patient Condition Patient Condition Patient is in SDC doing well. She does complain of pain which is to be expected but has stable vital signs, no apparent adverse anesthesia problems. No complications reported per nursing. LIANA HERMAN DO Oct 10, 2022 11:54
== END 2022-10-10 12:49 | disposition home or self-care (01) ==
LOC: SDC 07:20
PROVIDERS: ATTEND Surgery
DX: K81.1 Chronic cholecystitis (principal); K66.0 Peritoneal adhesions (postprocedural) (postinfection); Z87.891 Personal history of nicotine dependence
CPT/HCPCS: 76000; 87081; 88304; 94664

== ENCOUNTER → 2022-11-15 | Outpatient (CLI) | payer MEDICARE, MEDICAID ==
[~2022-11-15] MED LIST changes: +ACHD5005 PO
== END ==
LOC: CARD 11:28
PROVIDERS: ATTEND Physician Assistant
DX: I07.1 Rheumatic tricuspid insufficiency (principal); I10 Essential (primary) hypertension
CPT/HCPCS: 93306

== ENCOUNTER 2023-03-06 13:51 | Outpatient (RCR) | payer MEDICARE, MEDICAID ==
[~2023-03-06 13:51] MED LIST changes: +MONT-47 PO; -MONT10TA21 PO
== END 2023-03-08 | disposition home or self-care (01) ==
LOC: ONC 13:51
PROVIDERS: ATTEND Internal Medicine Hematology & Oncology
DX: Z53.9 Procedure and treatment not carried out, unspecified reason (principal)

== ENCOUNTER 2023-04-24 06:02 | Outpatient (CLI) | payer MEDICARE, MEDICAID ==
[~2023-04-24] VITALS: Ht 157.5 cm; Wt 95.4 kg
[2023-04-24] MEDS ORDERED: HYDR-700 PO (13:29)
[2023-04-24] MEDS ORDERED: PRAZ5CAP2 PO (13:29)
[2023-04-24] MEDS ORDERED: LEVO150T6 PO (13:29)
[2023-04-24] MEDS ORDERED: PRAZ2CAP2 PO (13:29)
[2023-04-24] MEDS ORDERED: LOSA50TA63 PO (13:29)
[2023-04-24] MEDS ORDERED: POTA-179 PO (13:29)
[2023-04-24] MEDS ORDERED: FLT11013 IH (13:29)
[2023-04-24] MEDS ORDERED: SEMA1.7P SQ (13:29)
[2023-04-24] MEDS ORDERED: FLUT1BLS13 IH (13:29)
[2023-04-24] MEDS ORDERED: TIZA-169 PO ×2 (13:29)
[2023-04-24] MEDS ORDERED: TRZ50T PO (13:29)
== END 2023-04-24 13:50 | disposition home or self-care (01) ==
LOC: PREOP 06:02
PROVIDERS: ATTEND Surgery
DX: Z01.818 Encounter for other preprocedural examination (principal)

== ENCOUNTER 2023-05-01 07:09 | Day surgery (SDC) | payer MEDICARE, MEDICAID ==
[~2023-05-01] VITALS: Ht 157.5 cm; Wt 95.4 kg
[2023-05-01] VITALS (11 sets, daily range): BP systolic 123–149; BP diastolic 74–98
[~2023-05-01 07:09] MED LIST changes: +FLT11013 IH; +FLUT1BLS13 IH; +HYDR-700 PO; +LEVO150T6 PO; +LOSA50TA63 PO; +POTA-179 PO; +PRAZ2CAP2 PO; +SEMA1.7P SQ; +TIZA-169 PO; +TRZ50T PO
[2023-05-01] MEDS ORDERED: LIDOCAINE 1% w/EPI 1:100,000 20 ML VIAL ONE (07:19)
[2023-05-01] MEDS ORDERED: LIDOCAINE 1% w/EPI 1:100,000 20 ML VIAL INJ ONE (07:21)
[2023-05-01] MEDS ORDERED: LACTATED RINGERS 1,000 ML 1,000 ML IV PRN (07:45)
[2023-05-01] MEDS ORDERED: ceFAZolin INJECTION 2,000 MG in NS (IVPB) 50 ML 50 ML IV ONE (07:45)
[2023-05-01] MEDS ORDERED: proPOfol INJECTION 200 MG/20 ML VIAL IV ONE (07:54)
[2023-05-01] MEDS ORDERED: ROCURONIUM 50 MG/5 ML VIAL IV ONE (07:54)
[2023-05-01] MEDS ORDERED: dexAMETHasone INJ 10 MG/ML 1 ML VIAL ONE (07:54)
[2023-05-01] MEDS ORDERED: fentaNYL INJECTION 100 MCG/2 ML VIAL ONE (07:54)
[2023-05-01] MEDS ORDERED: MIDAZOLAM INJ 2 MG/2 ML VIAL ONE (07:54)
[2023-05-01] MEDS ORDERED: LIDOCAINE PF 2% 5 ML VIAL ONE (07:54)
[2023-05-01] MEDS ORDERED: SEVOFLURANE (ULTANE) 15 ML INHAL SOLN ONE (07:54)
[2023-05-01] MEDS ORDERED: ONDANSETRON INJECTION 4 MG/2 ML (SDV) ONE ×2 (07:54→10:15)
--- NOTE | 2023-05-01 08:38 | Progress Note-Pre Operative ---
Pre-Operative Progress Note Date of Available H&P: Apr 16, 2023 Date H&P Reviewed: May 01, 2023 Time H&P Reviewed: 08:36 History & Physical: H&P Reviewed, Patient Examed, No changes noted Pre-Operative Diagnosis: Incarcerated Ventral/Incisional hernia JAYLA DAMON DO May 01, 2023 08:38
[2023-05-01] MEDS ORDERED: NEOSTIGMINE 1 MG/1ML 10 ML VIAL ONE (09:49)
[2023-05-01] MEDS ORDERED: GLYCOPYRROLATE INJ 0.2 MG/ML 2 ML VIAL ONE (09:49)
--- NOTE | 2023-05-01 09:52 | Progress Note-Post Operative ---
Post-Operative Progess Note Surgeon (s)/Continuous Dryout Operator Helper (s) Surgeon JAYLA DAMON DO Continuous Dryout Operator Helper: Ness Pre-Operative Diagnosis Incarcerated Ventral/Incisional hernia Post-Operative Diagnosis Same, approximately 3.5cm defect Procedure & Operative Findings Date of Procedure 05/01/23 Procedure Performed/Findings PROCEDURE: Laparoscopic Ventral/Incisional hernia repair with mesh - Robotic COMPLICATIONS: None. INDICATIONS: The patient is a 52, female with an incarcerated ventral/incisional hernia, which has continued to increase in size and cause discomfort. The patient was explained the risk and benefits of the procedure and wished to proceed with the procedure. Consent was signed on the chart. DESCRIPTION OF PROCEDURE: The patient was taken into the operating suite, prepped and draped in sterile fashion. Surgical pause was performed. Local anesthetic was infiltrated in left upper quadrant. A #11 blade scalpel was used to make a small skin incision. Cautery was used to dissect down to the fascia, which was then scored and divided the muscle, went through the posterior sheath and a balloon trocar was inserted into the abdomen. The abdomen was then insufflated. There was some omentum stuck in the fascial defect, easily came out and then measured defect to be slightly bigger than 3.5cm. An 8 mm robotic trocar was placed in the left lower quadrant and another 8 mm trocar was placed across from umbilicus. The defect was then closed using 0 Strattafix running suture, from top to bottom of incision and then back up. Elected to use a 4x6 inch oval Echo Ventralight mesh which was inserted in the abdomen grabbed through a stab incision at top of previous incision. Placed a 5mm Versa-step port in the right mid abdomen, under direct visualization. The balloon was inflated on the mesh. Circumferential tacks were placed with a SecureStrap Tacker. The balloon was then removed and inner crown was created as well. The mesh was tacked with pressure being decreased. The 12 mm fascial defect was then closed using 0 Vicryl in a figure of eight fashion. The abdomen was then desufflated,the trocars were removed. The skin was then closed using 4-0 Monocryl in a running subcuticular fashion. The abdomen was washed and dried and Skin Affix was placed over the incisions. The patient tolerated procedure well without any complications. She was taken to recovery room in stable condition. Dr. Arzola assisted on this case helping to make incisions, close incisions, pass suture and help with tacking mesh. Anesthesia Type GET Estimated Blood Loss Estimated blood loss (mL): scant Specimens/Packing Specimens Removed none JAYLA DAMON DO May 01, 2023 09:52
[2023-05-01] MEDS ORDERED: ACHD5005 PO (09:54)
--- NOTE | 2023-05-01 09:55 | Discharge Inst-Surgical ---
Discharge Inst-Surgical Depart Medication/Instructions New, Converted or Re-Newed RX: Transmitted to Pharmacy Patient Instructions Follow up Appt: Make appointment for 1 week. [phone] Instructions: No lifting greater than 20 pounds. No strenuous activity. May shower in 24 hours, no tub bath or soaking. Use incentive spirometer at home as directed. No Smoking Skin/Wound Care: May remove bandages in am. You need to leave the Dermabond on incision it will fall off on it's own. Symptoms to Report: Appetite Changes, Extremity Discoloration, Numbness/Tingling, Swelling Increased, Bleeding Excessive, Eyesight Changes, Pain Increased, Urine Color Change, Constipation(Persistent), Fever over 101 degree F, Pain/Pressure in chest, Urinating Difficulty, Cough Up/Vomit Blood, Heart Beat Irreg/Pounding, Pain/Pressure in jaw, Cramps in feet or legs, Lightheadedness, Pain/Pressure in shoulder, Diarrhea(Persistent), Memory Changes Suddenly, Questions/Concerns, Weight gain consecutive days, Dizziness/Fainting, Nausea/Vomiting, Shortness of Breath, Weight gain over 2 pounds If questions or concerns contact your physician Or seek help at emergency department. Activity Activity as Tolerated: Yes Activity Instructions: Avoid Stress to Incision Driving Instructions: No Driving/Refer to Dr. Victoria Discharge Diet: No Restrictions Diet After 24 Hours: Clear Liquid if Nauseous If Any Problems/Questions/Issu: Contact Your Physician, Go to Emergency Room Skin/Wound Care Infection Signs and Symptoms: Increased Redness, Foul Odor of Wound, Increased Drainage, Skin Itchy or Has a Rash, Increased Swelling, Temperature Above 101 F Wound Care Comment: heating pad to shoulder or neck tonight for pain Bathing Instructions: Shower Stitches/[place]/Dermabond Dis: [place] JAYLA DAMON DO May 01, 2023 09:55
--- NOTE | 2023-05-01 10:04 | Anesthesia-General Post-Op ---
General Patient Condition Mental Status/LOC: Same as Preop Cardiovascular: Satisfactory Nausea/Vomiting: Absent Respiratory: Satisfactory Pain: Controlled Complications: Absent Post Op Complications Complications None Follow Up Care/Instructions Patient Instructions None needed. Anesthesia/Patient Condition Patient Condition Patient is doing well, no complaints, stable vital signs, no apparent adverse anesthesia problems. No complications reported per nursing. CLAIRE AQUINO CRNA May 01, 2023 10:04
[2023-05-01] MEDS ORDERED: morphine INJ 10 MG/ML 1ML (SYR OR VIAL) ONE (10:14)
[2023-05-01] MEDS ORDERED: MEPERIDINE INJ 50 MG/ML VIAL IVP ONE (10:15)
[2023-05-01] MEDS ORDERED: ONDANSETRON INJECTION 4 MG/2 ML (SDV) IVP PRN (10:15)
[2023-05-01] MEDS ORDERED: morphine INJ 10 MG/ML 1ML (SYR OR VIAL) IVP ONE (10:15)
[2023-05-01] MEDS ORDERED: HYDROcodone/ACETAMINOPHEN 5 MG/325 MG TABLET PO ONE (11:30)
[2023-05-01] MEDS ORDERED: HYDROcodone/ACETAMINOPHEN 5 MG/325 MG TABLET ONE (11:32)
== END 2023-05-01 12:47 | disposition home or self-care (01) ==
LOC: SDC 07:09
PROVIDERS: ATTEND Surgery
DX: K43.0 Incisional hernia with obstruction, without gangrene (principal); E66.9 Obesity, unspecified; Z68.38 Body mass index [BMI] 38.0-38.9, adult; Z87.891 Personal history of nicotine dependence
CPT/HCPCS: 87081

== ENCOUNTER → 2023-06-13 | Outpatient (CLI) | payer MEDICARE, MEDICAID | LOC: CANPRECLI → CARD 11:26 | PROVIDERS: ATTEND Internal Medicine Cardiovascular Disease | DX: I10 Essential (primary) hypertension (principal) | CPT/HCPCS: 93306 ==